=== PATIENT | male | born 1980 | race Two or more races ===

== ENCOUNTER 2017-07-12 17:38 | Emergency (ER) | payer BC ==
[~2017-07-12] VITALS: Ht 180.3 cm; Wt 124.7 kg
--- NOTE | 2017-07-12 18:11 | NUR ---
Patient discharged to home in stable conditon. Written and verbal after care instructions given. Patient verbalizes understanding of instructions.
== END 2017-07-12 18:15 | disposition home or self-care (01) ==
LOC: ER 17:38
DX: S93.402A Sprain of unspecified ligament of left ankle, initial encounter (principal); I10 Essential (primary) hypertension; Z88.5 Allergy status to narcotic agent; V43.52XA Car driver injured in collision with other type car in traffic accident, initial encounter; Y92.410 Unspecified street and highway as the place of occurrence of the external cause; Y93.89 Activity, other specified; Y99.8 Other external cause status
CPT/HCPCS: 73610; A4663